=== PATIENT | female | born 1990 | race Hispanic/Latino ===

== ENCOUNTER 2017-05-04 10:52 | Emergency (ER) | payer MEDICAID ==
[2017-05-04 11:04] VITALS: BMI 19.2
[2017-05-04 11:06] VITALS: BP 108/72; PULSE 89; RESP 18; TEMP 99; O2SAT 100
--- NOTE | 2017-05-04 13:18 | ED PDOC ---
HPI: General Adult Time Seen by Provider: 05/04/17 11:32 Chief Complaint (Nursing): Medical Clearance History Per: Patient Additional Complaint(s): Pt. states on 05/22/2017 she is to have breast augmentation surgery and was told she is needs CBC, PT/PTT, BHCG, and a metabolic panel (must be fasting). Pt. does admit to drinking half a bottle of "Rita juice" while in ED. Offers no complaints at this time. Past Medical History Reviewed: Historical Data, Nursing Documentation, Vital Signs Vital Signs: Last Vital Signs Temp 99 F 05/04/17 11:04 Pulse 89 05/04/17 11:04 Resp 18 05/04/17 11:04 BP 108/72 05/04/17 11:04 Pulse Ox 100 05/04/17 13:18 - Medical History PMH: Asthma - Family History Family History: States: No Known Family Hx - Home Medications Home Medications: Ambulatory Orders Medication Instructions Recorded Dicyclomine [Bentyl] 20 mg PO Q8 PRN #30 tab 11/17/16 Famotidine [Pepcid] 20 mg PO DAILY PRN #30 tab 11/17/16 Ondansetron ODT [Zofran ODT] 4 mg PO TID #21 odt 11/17/16 - Allergies Allergies/Adverse Reactions: Allergies Allergy/AdvReac Type Severity Reaction Status Date / Time No Known Allergies Allergy Verified 05/04/17 11:03 Review of Systems ROS Statement: Except As Marked, All Systems Reviewed And Found Negative Physical Exam - Physical Exam Appears: Positive for: Well, Non-toxic, No Acute Distress Skin: Positive for: Normal Color, Warm. Negative for: Rash Eye Exam: Positive for: Normal appearance Neck: Positive for: Normal, Painless ROM Cardiovascular/Chest: Positive for: Regular Rate, Rhythm Respiratory: Positive for: CNT, Normal Breath Sounds Gastrointestinal/Abdominal: Positive for: Normal Exam, Soft. Negative for: Tenderness Back: Positive for: Normal Inspection Extremity: Positive for: Normal ROM Neurologic/Psych: Positive for: Alert, Oriented - Laboratory Results Result Diagrams: 05/04/17 13:10 05/04/17 10:23 - ECG O2 Sat by Pulse Oximetry: 100 Disposition - Clinical Impression Clinical Impression: Evaluation by medical service required - Disposition Referrals: [facility] [Outside] Disposition: Routine/Home Disposition Time: 14:22 Condition: STABLE Instructions: Normal Exam (ED) Print Language: KENYAN
[2017-05-04 13:29] LABS: BASO # 0.1 K/uL (0.0-0.2); BASO % 0.5 % (0.0-2.0); EOS # 0.1 K/uL (0.0-0.7); EOS % 0.7 % (0.0-4.0); HEMOGLOBIN 13.3 g/dL (12.0-16.0); LYMPH % 27.7 % (20.0-40.0); MEAN CELL VOLUME 95.7 fl (81.0-99.0); MEAN CORPUSCULAR HEMOGLOBIN 32.5 pg (27.0-31.0); MEAN PLATELET VOLUME 10.5 fl (7.2-11.7); MONO # 0.6 K/uL (0.0-0.8); MONO % 5.9 % (0.0-10.0); NEUT % 65.2 % (50.0-75.0); RBC 4.09 Mil/uL (3.80-5.20); RED CELL DISTRIBUTION WIDTH 12.8 % (11.5-14.5); WHITE BLOOD COUNT 10.7 K/uL (4.8-10.8)
[2017-05-04 13:52] LABS: ALB/GLOB RATIO 1.6 (1.0-2.1); ALBUMIN 4.8 g/dL (3.5-5.0); ALT/SGPT 33 U/L (9-52); AST/SGOT 21 U/L (14-36); BLOOD UREA NITROGEN 7 mg/dl (7-17); CALCIUM 9.6 mg/dL (8.4-10.2); GFR AFRICAN-AMERICAN > 60; GFR NON-AFRICAN AMERICAN > 60
[2017-05-04 14:18] LABS: INR 1.1 (0.9-1.2); PARTIAL THROMBOPLASTIN TIME 35.1 Seconds (25.6-37.1); PROTHROMBIN TIME 12.7 Seconds (9.8-13.1)
== END 2017-05-04 14:32 | disposition home or self-care (01) ==
LOC: H.ER 10:52
DX: Z00.00 Encounter for general adult medical examination without abnormal findings (principal)